=== PATIENT | female | born 1970 | race Caucasian/White ===

== ENCOUNTER → 2016-08-09 | Outpatient (CLI) | payer BC ==
[~2016-08-09] MED LIST: AMOX1TAB12 PO; CETI10TA20 PO; FLUT9.9S NS; HYDR200T PO; LACT1CAP62 PO; MNTL10T PO; OMG1KC PO
--- NOTE | 2016-08-09 11:53 | Diagnostic Imaging Report ---
PROCEDURE: CT abdomen and pelvis with and without contrast. TECHNIQUE: Precontrast acquisitions were acquired through the abdomen and pelvis. Multiple contiguous axial images were obtained through the abdomen and pelvis after the administration of intravenous contrast. INDICATION: Hematuria and back pain. COMPARISON: None. FINDINGS: The lung bases are clear. There are couple of tiny low-density lesions in the left lobe of the liver which are too small to actually characterize but are probably small cysts. These are seen on series 4 image 12 and series 417. No additional focal hepatic abnormality is seen. The portal vein appears patent. Gallbladder appears unremarkable. The pancreas, spleen and adrenal glands appear unremarkable. The kidneys appear unremarkable. No urinary tract stone or obstructive uropathy is seen. The appendix appears normal. The uterus and adnexa appear unremarkable. No significant free fluid, adenopathy or inflammatory changes demonstrated. The abdominal aorta appears normal in caliber. There are degenerative changes of the lumbosacral junction with severe degenerative disc disease, bilateral spondylolysis and grade I anterolisthesis of L5 on S1. IMPRESSION: 1. No acute abnormalities demonstrated in the abdomen and pelvis. 2. Incidental low-density lesions in the liver are of doubtful significance and likely represent benign cysts. 3. Degenerative changes of the L5/S1 level with bilateral spondylolysis and grade I anterolisthesis of L5 on S1. Dictated by: Dictated on workstation # [id number]
== END ==
LOC: RAD 07:51
PROVIDERS: ATTEND Urology
DX: R31.9 Hematuria, unspecified (principal)
CPT/HCPCS: 74178; Q9967

== ENCOUNTER 2016-08-10 05:25 | Emergency (ER) | payer BC ==
[~2016-08-10] VITALS: Ht 175.3 cm; Wt 113.0 kg
--- OUTSIDE RECORDS SUMMARY | 2016-08-10 05:29 | XMS REPORT | Summary of Care ---
Author Author Alli Loco, Bob Organization Unknown Address [address], [place] [id number] Phone Unavailable Care Team Providers Care Systems Auditor Name Role Phone Brianna Pereira M.D. Unavailable Unavailable Kari Loco, Izzy Unavailable Unavailable Bob Carson M.D. 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 Tendonitis, Achilles (726.71, M76.60) Status: Active Raynaud's disease (443.0, I73.00) Status: Active Obesity (278.00, E66.9) Status: Active Spinal stenosis (724.00, M48.00) Status: Active Esophageal reflux (530.81, K21.9) Status: Active 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, 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 Edema (782.3, R60.9) Status: Active Muscle weakness (728.87, M62.81) Status: Active Allergic rhinitis (477.9, J30.9) Status: Active Chronic sinusitis (473.9, J32.9) Status: Active Desensitization to allergens (V07.1, Z51.89) Status: Active Sjogrens syndrome (710.2, M35.00) Status: Active Polycystic ovarian syndrome (256.4, E28.2) Status: Active Morbid obesity (278.01, E66.01) Status: Active High risk medication use (V58.69, Z79.899) Status: Active Medications Name Dates Details Fluticasone Propionate 50 MCG/ACT Nasal Suspension USE TWO SPRAY IN EACH NOSTRIL ONCE DAILY Quantity: 1 Refills: 0 Brianna Pereira M.D. Started 04-May-2008 Asujdd96 GM Bottle Pantoprazole Sodium 40 MG Oral Tablet Delayed Release TAKE 1 TABLET DAILY. Quantity: 30 Refills: 3 Izzy Pierce M.D. Started 10-Aug-2008 ActiveHydroxychloroquine Sulfate 200 MG Oral Tablet TAKE 1 TABLET DAILY WITH FOOD. Quantity: 90 Refills: 0 Bob Carson M.D. Started 08-Jan-2009 ActiveFish Oil 1200 MG Oral Capsule TAKE 1 CAPSULE Daily Refills: 0 Bob Carson M.D. Started 07-Jun-2011 ActiveAspirin EC 325 MG Oral Tablet Delayed Release Refills: 0 ActiveMontelukast Sodium 10 MG Oral Tablet TAKE ONE TABLET BY MOUTH ONCE DAILY IN THE EVENING Quantity: 30 Refills: 3 Brianna Pereira M.D. Started 07-Aug-2011 ActiveEpiPen 2-Ye 0.3 MG/0.3ML LAURA EpiPen 2-ye 0.3mg/0.3ml inection deviceuse has instructed. Quantity: 1 Refills: 1 Brianna Pereira M.D. Started 14-Aug-[address] [facility] [place] Refills: 0 Brianna Pereira M.D. Started 14-Aug-2011 ActiveMulti-Day Plus Iron Oral Tablet TAKE 1 TABLET ONCE DAILY. Refills: 0 Started Active Allergies and Adverse Reactions Name Dates Details No Known Drug Allergies Status: Active Past Medical History Name Dates Details Desensitization to allergens (V07.1, Z51.89) Status: Active History of Acute sinusitis (461.9, J01.90) Status: Resolved History of Acute sinusitis (461.9, J01.90) Status: Resolved History of Immunodeficiency disorder (279.3, D84.9) Status: Resolved History of obesity (V13.89, Z86.39) Status: Resolved History of Sjogrens syndrome (710.2, M35.00) Status: Resolved History of sleep apnea (V13.89, Z87.09) Status: Resolved History of Sore throat (462, J02.9) Status: Resolved History of Spinal stenosis (724.00, M48.00) Status: Resolved Procedures Procedure Dates Details History of Section History of Sinus Surgery Procedures not documented Immunization Name Dates Details Pneumo (Pneumovax) Administered on:26-Jul-2006 Pneumo (Pneumovax) Lot #: [id number] Administered on:06-Jul-2011 Family History Unknown Family Member Name Dates Details Family history of Hay Fever Comments: Family History Status: Active Grandmother Name Dates Details Family history of Gallbladder Disease Status: Active aunt Name Dates Details Family history of Diabetes Mellitus (V18.0) Status: Active Family history of Obesity Status: Active uncle Name Dates Details Family history of Heart Disease (V17.49) Status: Active Family history of Obesity Status: Active Mother Name Dates Details Family history of Hypertension (V17.49) Status: Active Family history of Gallbladder Disease Status: Active Social History Name Dates Details Smoking StatusNever smoker Vital Signs Date Test Result Details 23-Dec-2014 08:53 BP Systolic 96 mm[Hg] Status: BP Diastolic 60 mm[Hg] Status: Heart Rate 64 /min Status: Weight 273 lb Status: Body Mass Index Calculated 39.74 kg/m2 Status: Body Surface Area Calculated 2.37 m2 Status: Results Date Description Value Details Results not documented Plan of Care Planned Observations Name Dates Details Planned Goals not documented Goal Planned Encounters Appointment; Provider: Bob Carson On 06-Jul-2015 09:00 Appointment; Provider: Brianna Pereira On 02-Feb-2015 13:45 Instructions Instructions not documented Encounters Appointment; Bob Carson Encounter Diagnosis: Problem not documented On 23-Dec-2014 09:00 Appointment; Bob Carson Encounter Diagnosis: Problem not documented On 18-Jun-2014 11:00 Appointment; Brianna Pereira Encounter Diagnosis: Problem not documented On 01-Jun-2014 09:30 Appointment; Bob Carson Encounter Diagnosis: Problem not documented On 18-Dec-2013 09:15 Appointment; Brianna Pereira Encounter Diagnosis: Problem not documented On 17:30 Appointment; Brianna Pereira Encounter Diagnosis: Problem not documented On 16:00 Appointment; Bob Carson Encounter Diagnosis: Problem not documented On 28-May-2013 09:15 Appointment; Brianna Pereira Encounter Diagnosis: Problem not documented On 13-Mar-2013 11:45
[2016-08-10] MEDS ORDERED: MNTL10T PO (05:57)
[2016-08-10] MEDS ORDERED: FLUT9.9S NS (05:57)
[2016-08-10] MEDS ORDERED: CETI10TA20 PO (05:57)
[2016-08-10] MEDS ORDERED: OMG1KC PO (05:57)
[2016-08-10] MEDS ORDERED: LACT1CAP62 PO (05:57)
[2016-08-10] MEDS ORDERED: HYDR200T PO (05:57)
[2016-08-10 06:10] LABS: MEAN CORPUSCULAR VOLUME 88 FL (80-100); MEAN PLATELET VOLUME 10.2 FL (6.0-9.5); PLATELET COUNT 138 10^3uL (150-450); WHITE BLOOD COUNT 5.19 10^3uL (4.0-11.0)
[2016-08-10] MEDS ORDERED: IBUPROFEN 200 MG (MOTRIN) TAB PO ONE (06:10)
[2016-08-10] MEDS ORDERED: ONDANSETRON 2 MG/ML (Z0FRAN) 2 ML VIAL IV ONE (06:10)
[2016-08-10] MEDS ORDERED: SODIUM CHLORIDE FLUSH 10 ML SYR IV PRN ×2 (06:15)
[2016-08-10 06:17] LABS: BILIRUBIN,URINE Negative (Negative); CLARITY,URINE Cloudy; COLOR,URINE Dark Yellow; GLUCOSE, URINE (UA) Negative (Negative); LEUKOCYTE ESTERASE ,URINE 2+ (Negative); PH,URINE 5.5 (5.0 - 8.0); UROBILINOGEN,URINE 0.2 mg/dL (0.2-1.0)
[2016-08-10 06:19] LABS: BAND NEUTROPHILS % 0 % (0-6); EOSINOPHILS % 0 % (0-4); LYMPHOCYTES # 0.1 #; MEAN CORPUSCULAR HEMOGLOBIN 31.6 PG (26.0-34.0); MONOCYTES % 0 % (3-11); RBC MORPH NORMAL (NORMAL); SEGMENTED NEUTROPHILS % 98 % (51-67); TOTAL CELLS COUNTED 100
[2016-08-10 06:22] LABS: URINE CENTRIFUGED VOLUME 12 mL
[2016-08-10 06:26] LABS: ALBUMIN 3.8 g/dL (3.4-5.0); ANION GAP 13.9 MEQ/L (3-15); CALCULATED IONIZED CALCIUM 3.9 mg/dL (3.8-4.6); TOTAL PROTEIN 6.6 g/dL (6.4-8.5)
[2016-08-10] MEDS ORDERED: cefTRIAXone SODIUM 1,000 MG in SODIUM CHLORIDE 50 ML IV ONE (06:35)
[2016-08-10] MEDS ORDERED: POTASSIUM CHLORIDE ER 20 MEQ TABLET PO ONE (06:35)
[2016-08-10] MEDS ORDERED: AMOX1TAB12 PO (06:37)
--- NOTE | 2016-08-10 07:35 | NUR ---
[facility] cl
[2016-08-10 07:37] VITALS: BP 135/59
== END 2016-08-10 07:51 | disposition home or self-care (01) ==
LOC: ED 05:26
DX: N39.0 Urinary tract infection, site not specified (principal); N12 Tubulo-interstitial nephritis, not specified as acute or chronic
CPT/HCPCS: 36415; 80053; 81003; 81015; 85025; 86140; 86308; 87070; 87088; 87651; 96365; 96375; 99284; J0696; J2405; J7030; 99282